=== PATIENT | male | born 1965 ===

== ENCOUNTER 2019-01-04 07:59 | Emergency (ER) | payer BC ==
[~2019-01-04] VITALS: Ht 182.9 cm; Wt 111.1 kg
[2019-01-04] MEDS ORDERED: BURN RELIEF W-127 GM (08:54)
[2019-01-04] MEDS ORDERED: KETO10TA2 PO (09:05)
[2019-01-04] MEDS ORDERED: SILVADENE20 GM TOP (09:05)
[2019-01-04] MEDS ORDERED: DUI500 PO (09:05)
== END 2019-01-04 09:24 ==
LOC: ER 07:59
DX: T23.201A Burn of second degree of right hand, unspecified site, initial encounter (principal); X08.8XXA Exposure to other specified smoke, fire and flames, initial encounter; Y93.G3 Activity, cooking and baking; Y92.090 Kitchen in other non-institutional residence as the place of occurrence of the external cause; Y99.8 Other external cause status